=== PATIENT | male | born 1970 | race Two or more races ===

== ENCOUNTER 2019-08-27 07:58 | Outpatient (CLI) | payer BC ==
[2019-08-27 09:24] LABS: ALBUMIN 4.2 g/dL (3.4-5.0); BASOPHILS % (AUTO) 0.9 % (0.0-2.0); BILIRUBIN,TOTAL 0.6 mg/dL (0.2-1.0); CALCIUM, SERUM 9.2 mg/dL (8.5-10.1); CREATININE 0.7 mg/dL (0.6-1.3); EOSINOPHILS % (AUTO) 3.2 % (0.0-6.0); HEMATOCRIT 45 % (39-51); HEMOGLOBIN 14.9 g/dL (13.5-17.5); LYMPHOCYTES # (AUTO) 1.3 /CMM (0.8-4.8); LYMPHOCYTES % (AUTO) 30.1 % (20.0-44.0); MEAN CORPUSCULAR HGB CONC 33 g/dl (31.0-36.0); MEAN CORPUSCULAR VOLUME 86 fL (80-96); MONOCYTES # (AUTO) 0.3 /CMM (0.1-1.30); MONOCYTES % (AUTO) 6.4 % (2.0-12.0); NEUTROPHILS # (AUTO) 2.6 /CMM (1.8-8.9); NEUTROPHILS % (AUTO) 59.4 % (43.0-81.0); PLATELET COUNT (AUTO) 220 /CMM (150-450); POTASSIUM 3.5 mmol/L (3.5-5.1); RED BLOOD CELL COUNT(AUTO) 5.22 MIL/uL (4.5-6.0); TOTAL PROTEIN, SERUM 7.5 g/dL (6.4-8.2); WHITE BLOOD COUNT (AUTO) 4.4 K/uL (4.3-11.0)
[2019-08-27 09:33] LABS: THYROID STIMULATING HORMONE 1.547 uIU/mL (0.358-3.74)
== END 2019-08-27 23:59 | disposition home or self-care (01) ==
LOC: LAB 07:58
PROVIDERS: ATTEND Family Medicine
DX: E11.9 Type 2 diabetes mellitus without complications (principal); I10 Essential (primary) hypertension; E78.5 Hyperlipidemia, unspecified; E55.9 Vitamin D deficiency, unspecified; Z79.899 Other long term (current) drug therapy
CPT/HCPCS: 36415; 80053-TC; 80061-TC; 82306; 84439-TC; 84443-TC; 85025-TC

== ENCOUNTER 2021-12-06 09:49 | Outpatient (CLI) | payer BC ==
[2021-12-06 11:28] LABS: CREATININE 0.8 mg/dL (0.6-1.3)
[2021-12-07 11:07] LABS: ACTH, PLASMA 14.6 pg/mL (7.2-63.3)
== END 2021-12-06 23:59 | disposition home or self-care (01) ==
LOC: LAB 09:49
PROVIDERS: ATTEND Family Medicine
DX: D35.02 Benign neoplasm of left adrenal gland (principal)
CPT/HCPCS: 36415; 82024; 82533; 82565-TC; 82627; 83835; 84520-TC

== ENCOUNTER 2021-12-13 08:56 | Outpatient (CLI) | payer BC ==
[2021-12-13] MEDS ORDERED: IOHEXOL-350 100 ML VIAL IV ONE (09:27)
== END 2021-12-13 23:59 | disposition home or self-care (01) ==
LOC: CT 08:56
PROVIDERS: ATTEND Family Medicine
DX: D35.02 Benign neoplasm of left adrenal gland (principal)
CPT/HCPCS: 74170; Q9967